=== PATIENT | male | born 1975 | race Caucasian/White ===

== ENCOUNTER 2021-03-30 13:07 | Emergency (ER) | payer OTHER ==
[2021-03-30 13:49] VITALS: BP 148/96; PULSE 67
--- NOTE | 2021-03-30 16:13 | EDM.PDOC ---
ED HPI GENERAL MEDICAL PROBLEM - General Chief Complaint: Upper Extremity Injury/Pain Stated Complaint: left elbow injury Time Seen by Provider: 03/30/21 13:15 Source of Information: Reports: Patient History Limitations: Reports: No Limitations - History of Present Illness INITIAL COMMENTS - FREE TEXT/NARRATIVE: Pt. states that he slipped on ice, falling backward and landing on L posterior elbow. Denies striking head or injury elsewhere. No numbness/tingling distal to area of injury. Pt. denies any previous injury to this area. Onset: Today Onset Date: 03/30/21 Location: Reports: Upper Extremity, Left Severity: Moderate Improves with: Reports: Rest Worsens with: Reports: Movement Left Elbow Pain Score (Numeric/FACES): 2 - Related Data Allergies Allergy/AdvReac Type Severity Reaction Status Date / Time No Known Allergies Allergy Verified 03/30/21 13:08 Home Meds: Home Meds . [No Known Home Meds] 03/30/21 [History] Past Medical History - Past Health History Medical/Surgical History: Denies Medical/Surgical History Social & Family History - Tobacco Use Tobacco Use Status *Q: Former Tobacco User Used Tobacco, but Quit: Yes Month/Year Tobacco Last Used: 2019 Second Hand Smoke Exposure: Yes - Caffeine Use Caffeine Use: Reports: Energy Drinks, Soda - Recreational Drug Use Recreational Drug Use: No Review of Systems - Review of Systems Review Of Systems: See Below Constitutional: Reports: No Symptoms Eyes: Reports: No Symptoms Ears: Reports: No Symptoms Nose: Reports: No Symptoms Mouth/Throat: Reports: No Symptoms Respiratory: Reports: No Symptoms Cardiovascular: Reports: No Symptoms GI/Abdominal: Reports: No Symptoms Genitourinary: Reports: No Symptoms Musculoskeletal: Reports: Arm Pain, Joint Pain, Joint Swelling Skin: Reports: No Symptoms Neurological: Reports: No Symptoms Psychiatric: Reports: No Symptoms ED EXAM, GENERAL - Physical Exam Exam: See Below Exam Limited By: No Limitations General Appearance: Alert, WD/WN, No Apparent Distress Extremities: Normal Capillary Refill, Joint Swelling, Other (Increased pain with movement, edema to elbow). No: Slow Capillary Refill Course - Vital Signs Last Recorded V/S: Last Vital Signs Temp 36.8 C 03/30/21 13:15 Pulse 67 03/30/21 13:15 Resp 16 03/30/21 13:15 BP 148/96 H 03/30/21 13:15 Pulse Ox 99 03/30/21 13:15 - Orders/Labs/Meds Orders: Active Orders 24 hr Category Date Time Status Elbow Min 3V Lt [CR] Stat Exams 03/30/21 13:11 Taken - Radiology Interpretation Free Text/Narrative:: L elbow radiographs obtained. No obvious bony deformity noted. + soft tissue edema. Departure - Departure Time of Disposition: 14:00 Disposition: Home, Self-Care 01 Clinical Impression: Contusion of left elbow - Discharge Information Instructions: Elbow Contusion, [id number] Referrals: PCP,Unknown [Ordering Only Provider] - Forms: ED Department Discharge, ED Return to Work/School Form Additional Instructions: Ice elbow for 10 min every hour. Tylenol and ibuprofen as needed for discomfort. Follow-up in clinic in 7-10 days for repeat x-rays if you are still having pain. Sepsis Event Note (ED) - Evaluation Sepsis Screening Result: No Definite Risk - Focused Exam Vital Signs: Vital Signs Temp Pulse Resp BP Pulse Ox 03/30/21 13:15 36.8 C 67 16 148/96 H 99 - Problem List Review Problem List Initiated/Reviewed/Updated: Yes - My Orders Last 24 Hours: My Active Orders 03/30/21 13:11 Elbow Min 3V Lt [CR] Stat - Assessment/Plan Last 24 Hours: My Active Orders 03/30/21 13:11 Elbow Min 3V Lt [CR] Stat Plan: Ice elbow for 10 min every hour. Tylenol and ibuprofen as needed for discomfort. Follow-up in clinic in 7-10 days for repeat x-rays if you are still having pain.
== END 2021-03-30 13:40 | disposition home or self-care (01) ==
LOC: LL.ED 13:07
DX: S50.02XA Contusion of left elbow, initial encounter (principal); Z87.891 Personal history of nicotine dependence; W00.0XXA Fall on same level due to ice and snow, initial encounter
CPT/HCPCS: 73080-LT; 99283; 99283-25